=== PATIENT | female | born 1995 | race Caucasian/White ===

== ENCOUNTER 2017-10-22 15:13 | Emergency (ER) | payer MEDICAID ==
[~2017-10-22] VITALS: Ht 167.6 cm; Wt 78.9 kg
[2017-10-22 15:26] VITALS: BP_SYST 152
[2017-10-22 17:57] VITALS: BP_SYST 148
== END 2017-10-22 17:57 | disposition home or self-care (01) ==
LOC: SED 15:13
DX: J06.9 Acute upper respiratory infection, unspecified (principal)
CPT/HCPCS: 36415; 86710; 99284